=== PATIENT | female | born 1960 | race African-American/Black ===

== ENCOUNTER → 2016-11-09 | Outpatient (CLI) | payer MEDICARE, MEDICAID ==
[~2016-11-09] VITALS: Ht 167.6 cm; Wt 83.0 kg
[~2016-11-09] MED LIST: ALPR-475 PO; AMIT25TA PO; AMLO10TA2 PO; AMLO5TAB2 PO; ARIP2TAB PO; BACITRACIN 50,000 UNIT ONE; BISA10SU2 PR; BUPIVACAINE/PF 0.25% ONE; BUPIVACAINE/PF-EPI 0.5% 1:200K ONE; CARI350T PO; CARI350T14 PO; CEPH-368 PO; DILT60CA PO; ERGO500017 PO; GABA300C PO; GABA300C10 PO; GUAI10LI PO; HYDR-3144 PO; HYDR12.53 PO; HYDR12.58 PO; HYDR1TAB PO; LACTATED RINGERS 1,000 ML IV SCH; LEVO25TA4 PO; LEVO750T26 PO; LIDOCAINE 1%, 2ML ONE; OXYC15TA PO; OXYC30TA PO; PRED50TA PO; SERT100T PO; SERT100T5 PO; THROMBIN 5,000 UNIT VIAL TP ONE; VICODIN PO; WARF5TAB7 PO-COUM; ZOLP5TAB6 PO; metoprolol PO; will bring list DOS
[2016-11-09 14:58] LABS: BLOOD UREA NITROGEN 14 mg/dL (7-18)
== END | disposition home or self-care (01) ==
LOC: SDC 12:09 → ORIP 11-11 12:09 → UNDOADMIN 11-11 12:09 → UNDODISIN 11-11 17:00 → EDSTATUS 01-13 18:00
PROVIDERS: ATTEND Neurological Surgery
DX: Z01.811 Encounter for preprocedural respiratory examination (principal); R79.1 Abnormal coagulation profile; Z87.891 Personal history of nicotine dependence
CPT/HCPCS: 36415; 71020; 80048; 81003; 85025; 85610; 85730; 93005; J3490